=== PATIENT | male | born 1980 | race Caucasian/White ===

== ENCOUNTER → 2018-02-09 | Outpatient (CLI) | payer OTHER | LOC: M SLEEP 08:53 | DX: G40.909 Epilepsy, unspecified, not intractable, without status epilepticus (principal) ==

== ENCOUNTER 2018-11-24 01:59 | Emergency (ER) | payer MEDICAID, SELFPAY | END 2018-11-24 06:21 | disposition E | LOC: MERGE 01:59 → EDBD 01:59 → M ED 01:59 | DX: T31.8 Burns involving 80-89% of body surface (principal); I46.8 Cardiac arrest due to other underlying condition ==

== ENCOUNTER → 2018-11-24 | Outpatient (REF) | LOC: M LAB 09:12 | DX: Z02.89 Encounter for other administrative examinations (principal) ==